=== PATIENT | female | born 1960 | race Caucasian/White ===

== ENCOUNTER → 2024-02-05 | Outpatient (CLI) | payer MEDICARE | END | disposition home or self-care (01) | LOC: LABPRL 14:33 | PROVIDERS: ATTEND Registered Nurse Gerontology | DX: E78.5 Hyperlipidemia, unspecified (principal); E07.9 Disorder of thyroid, unspecified; R73.9 Hyperglycemia, unspecified | CPT/HCPCS: 80053; 80061; 83036; 84439; 84443; 85025 ==

== ENCOUNTER → 2024-05-29 | Outpatient (CLI) | payer MEDICARE ==
[2024-05-29 14:47] VITALS: BP 173/94; PULSE 75; RESP 16; TEMP 98.9
--- NOTE | 2024-05-29 15:25 | P.GSCN ---
History of Present Illness Consult date: 05/29/24 Reason for Consult: left breast tripple (-) invasive ductal cancer Requesting physician: Perla eRn History of present illness: Elizabeth is a 64 year old female seen in consultation for Dr. Ren and Dr. Casarez regarding a left breast IDC, tripple (-), T2N0M0. She had a bilateral mammogram on 03-12-24 which showed post treatment changes in the right breast (cancer) and a comglomeration of masses 36 by 29 by 30mm. in the left breast. Ultrasound on 03-31-24 confirmed the masses in the left breast and she had an ultrasound guided core biopsy on 04-22-24, showing IDC Grade 3. She states she noted a lump in her left breast about 8 months ago. Her last mammogram prior to this was several years ago. The area has not changed in size, it is not painful. No nipple discharge, no skin changes, no recent trauma of the breast, and no surgery of the left breast. She had a stereo biopsy of the left breast in the remote past which was benign. She had a right breast cancer in 2001 it was treated with surgery, chemotherapy (scheduled for 6 only made it through 5 had it after the surgery), and radiation therapy. This was done a [facility] at the time. T2.9 cm N0 (31 nodes)[id number]- She did not have genetic testing done, but sister and two nieces did and all had surgery not know what gene they carried PET scan scheduled for next week. She was seen by radiation oncology DR. Ren on 05-11-24 and his note is reviewed. caffiene: 1 cup coffee/day nicotine: none, stopped in the 's; 1/2 PPD for 4 years chocolate: daily BCP: used for about 15 years hormones: on lupreon prior to hysterectomy to shrink fibroids Hormonal History: menarche: 13 G0 menopause: surgical hysterectomy done for fibroids no cancer at 33, left ovaries Family History: paternal grandmother: vaginal cancer maternal grandmother: breast cancer father: renal cell cancer form this Surgical History: right breast and 30 nodes removed hysterectomy Medical History: anxiety and was on wellbutrin and stopped Social History: nicotine: none alcohol: several beers/week 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; since 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 in high school only 1 or 2 a day Review of Systems - Constitutional Denies fever, Denies weight loss - EENT Eyes: denies blurred vision Ears: right: tinnitus (from chemo) Ears, nose, mouth and throat: Denies dysphagia - Breasts bilateral: as per HPI - Cardiovascular Denies chest pain, Denies shortness of breath - Respiratory Denies cough, Denies 7 - Gastrointestinal Reports as per HPI - Genitourinary Genitourinary: Denies dysuria, Denies hematuria Menstruation: Reports post hysterectomy - Musculoskeletal Musculoskeleta Comment(s): fell frequently this year, vertigo - Integumentary Denies rash, Denies unusual bruising - Neurological Neurologic Comment(s): vertigo Denies headaches, Denies syncope - Psychiatric Reports as per HPI, Reports anxiety - Endocrine Reports as per HPI - Hematologic/Lymphatic Denies easy bleeding, Denies easy bruising - Allergic/Immunologic Reports as per HPI, Reports seasonal allergies Medications and Allergies Home Medications Medication Instructions Recorded Confirmed Type No Known Home Medications 05/29/24 05/29/24 History Allergies Allergy/AdvReac Type Severity Reaction Status Date / Time No Known Allergies Allergy Unverified 05/29/24 14:45 Surgical - Exam - General no distress - Eyes normal ocular movement - Neck trachea midline - Respiratory normal respiratory effort, clear to auscultation - Cardiovascular Rhythm: regular Heart Sounds: normal: S1, S2 - Abdomen Abdomen: soft, non tender, no guarding, no rigid, no rebound - Integumentary normal turgor - Neurologic no disoriented, no combative - Musculoskeletal normal gait, normal posture - Psychiatric oriented to time, oriented to person, oriented to place, speech is normal, memory intact Breast Exam: BRA: ? size Inspection: Right breast is smaller than left breast, right breast grade 1/2 ptosis, left breast 2/3 ptosis, there is fullness in the 12 o'clock position approximately 6 cm from the nipple noted on visual inspection Palpation: Right breast: Multi positional exam postsurgical and radiation changes no dominant masses or nodules of concern Right axilla: No adenopathy of concern Left breast: Multi positional exam approximately 6 x 5 cm mass in the upper breast approximately 6 cm from the nipple areolar complex this is freely mobile no other dominant masses or nodules of concern Left axilla: No adenopathy of concern Results PET scan is going to be done next week Mammogram and ultrasound personally reviewed and discussed with Dr. 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 Ren, DR. Casarez
== END ==
LOC: WWCWWP 13:45
PROVIDERS: ATTEND Surgery
DX: D05.12 Intraductal carcinoma in situ of left breast (principal); Z85.3 Personal history of malignant neoplasm of breast; Z80.3 Family history of malignant neoplasm of breast; Z17.22 Progesterone receptor negative status; Z17.1 Estrogen receptor negative status [ER-]

== ENCOUNTER → 2024-06-01 | Outpatient (CLI) | payer MEDICARE ==
--- NOTE | 2024-06-10 10:18 | BMR ---
EXAM DATE: 06/01/2024 EXAM DESCRIPTION: MRI-Breast Bilat (W/WO Contrast) INDICATION: History of right breast cancer status post breast conserving therapy in 2001. Newly diagnosed invasive ductal carcinoma in the left breast. COMPARISON: Comparison was made to prior relevant imaging available in PACS TECHNIQUE: Multiplanar multisequence breast MRI was performed prior to and after administration of 9 mL of Gadavist intravenously. Post processing was performed utilizing a [employer] workstation. The technical portion of this study was performed at [facility] with radiological interpretation by [facility] radiology. The exam is slightly limited due to motion artifact. FINDINGS: There is mild right and moderate left background parenchymal enhancement in breasts that are composed of scattered fibroglandular tissue. This asymmetry in background parenchymal enhancement may be related to history of prior radiation in the right breast. RIGHT BREAST: Postsurgical changes are present in the breast. Review of the dynamic contrast enhanced series shows no rapidly enhancing masses, suspicious enhancement patterns or other abnormalities. The T2 weighted series show no abnormality. LEFT BREAST: Review of the dynamic contrast enhanced series shows lobulated enhancing mass with associated signal void from biopsy clip at 12 o'clock position mid depth of the breast (series 503, image 594 and series 601, image 74). It measures 4.0 x 2.9 x 4.1 cm (AP x trans x cc dimension) and is consistent with biopsy-proven malignancy. Otherwise, no rapidly enhancing masses, suspicious enhancement pattern or other abnormalities in the left breast. The T2 weighted series show no abnormality. LYMPH NODES: No axillary or internal mammary lymphadenopathy. Small enhancing focus along the left internal mammary chain likely represents torturous vessel rather than slightly prominent internal mammary lymph node (series 504, image 427 and series 601 image 101). Incidental findings: A few circumscribed T2 hyperintense lesions in the partially visualized liver, presumed hepatic cysts. IMPRESSION: 1. Study limited by motion artifact. 2. Right breast: No MR evidence of malignancy. Postsurgical changes in the upper outer quadrant. 3. Left breast: A 4.0 x 2.9 x 4.1 cm enhancing mass at 12 o'clock position mid depth of the breast compatible with biopsy-proven malignancy. Otherwise, no definitive suspicious enhancing masses or other abnormalities in the left breast. 4. No axillary or internal mammary lymphadenopathy. Small enhancing focus along the left internal mammary chain likely represent torturous vessel rather than prominent internal mammary lymph node. This may be further evaluation with CT chest or reassessed on subsequent follow-up. RECOMMENDATION: Given malignant results in the left breast, recommend surgical and oncological management. OVERALL ASSESSMENT- BI-RADS 6, biopsy-proven malignant MTDD
== END | disposition home or self-care (01) ==
LOC: RADMRIMAIN 12:35
PROVIDERS: ATTEND Surgery
DX: C50.812 Malignant neoplasm of overlapping sites of left female breast (principal); Z98.890 Other specified postprocedural states; Z85.3 Personal history of malignant neoplasm of breast
CPT/HCPCS: C8908; A9585; 77049

== ENCOUNTER → 2024-07-08 | Outpatient (CLI) | payer MEDICARE ==
--- NOTE | 2024-07-08 14:36 | US ---
EXAMINATION TYPE: US pelvis complete transvag DATE OF EXAM: 07/08/2024 COMPARISON: NONE CLINICAL INDICATION: Female, 64 years old with history of N94.89 OTH COND ASSOC W FEMGENI ORGAN C50.4 19; Partial hysterectomy 1992. Abnormal PET TECHNIQUE: Transvaginal (TV) and Transabdominal (TA) . Transabdominal grayscale sonographic images of the pelvis were acquired. Transvaginal sonographic im ages were medically necessary to better assess the following anatomy: ovaries Doppler imaging: Not performed. FINDINGS: Date of LMP: unknown EXAM MEASUREMENTS: Uterus: Surgically absent Endometrial Stripe: Surgically absent Right Ovary: 3.4 x 4.0 x 5.7cm Left Ovary: unable to visualize 1. Uterus: Surgically absent 2. Endometrium: Surgically absent 3. Right Ovary/right adnexa: complex hypoechoic lesion right adnexa = 3.4 x 4.0 x 5.7cm 4. Left Ovary: Obscured by overlying bowel gas 5. Left Adnexa: appears wnl IMPRESSION: Solid right ovarian mass which was FDG avid on PET on 05/27/2024. Findings concerning for malignancy g iven increased uptake on pet/CT. [facility], , 07/08/2024 2:33 PM
== END | disposition home or self-care (01) ==
LOC: RADUSWWP 13:18
PROVIDERS: ATTEND Internal Medicine
DX: N83.291 Other ovarian cyst, right side (principal); N94.89 Other specified conditions associated with female genital organs and menstrual cycle; C50.419 Malignant neoplasm of upper-outer quadrant of unspecified female breast
CPT/HCPCS: 76830; 76856

== ENCOUNTER 2025-01-22 16:26 | Emergency (ER) | payer MEDICARE ==
[2025-01-22 16:35] VITALS: RESP 18; TEMP 98.1
--- NOTE | 2025-01-22 17:16 | ED ---
General Adult HPI - General Chief complaint: Upper Respiratory Infection Stated complaint: Chest Congestiion/STEVIE Time Seen by Provider: 01/22/25 16:35 Source: patient Mode of arrival: ambulatory Limitations: no limitations - History of Present Illness Initial comments: 64-year-old female who presents to the emergency department reporting chest congestion. Patient has a history of cancer and recently finished chemo and radiation 2 month ago. Patient reports that she has had a nonproductive cough with shortness of breath. Has exertional dyspnea. Today she was trying to cut her grass when she could not catch her breath. She has been taking Mucinex but this is not improving her symptoms. She denies history of asthma. No COPD. No fevers. Denies chest pain. No history of cardiac disease. No calf pain or swelling. No history of DVT or PE. No other alleviating, precipitating or modifying factors - Related Data Home Medications Medication Instructions Recorded Confirmed Ondansetron [Zofran] 4 mg PO Q12HR PRN 09/25/24 11/27/24 Stool Softener 1 tab PO DIRECTED PRN 09/25/24 11/27/24 Previous Rx's Medication Instructions Recorded Albuterol Inhaler [Ventolin Hfa 2 puff INHALATION QID #8 gm 01/22/25 Inhaler] Doxycycline Hyclate 100 mg PO BID 5 Days #10 tab 01/22/25 predniSONE [Deltasone] 20 mg PO BID #10 tab 01/22/25 Allergies Allergy/AdvReac Type Severity Reaction Status Date / Time No Known Allergies Allergy Verified 01/22/25 16:35 Review of Systems ROS Statement: Those systems with pertinent positive or pertinent negative responses have been documented in the HPI. ROS Other: All systems not noted in ROS Statement are negative. Past Medical History Past Medical History: Cancer Additional Past Medical History / Comment(s): ovarian and bilateral breast cancer, History of Any Multi-Drug Resistant Organisms: None Reported Past Surgical History: Hysterectomy Additional Past Surgical History / Comment(s): juan daniel zuniga Past Psychological History: No Psychological Hx Reported Smoking Status: Former smoker Past Alcohol Use History: Occasional Past Drug Use History: Marijuana General Exam Limitations: no limitations General appearance: alert, in no apparent distress Head exam: Present: atraumatic, normocephalic, normal inspection Eye exam: Present: normal appearance, PERRL, EOMI. Absent: scleral icterus, conjunctival injection, periorbital swelling ENT exam: Present: normal exam, mucous membranes moist Neck exam: Present: normal inspection. Absent: tenderness, meningismus, lymphadenopathy Respiratory exam: Present: wheezes. Absent: respiratory distress, rales, rhonchi, stridor Cardiovascular Exam: Present: regular rate, normal rhythm, normal heart sounds. Absent: systolic murmur, diastolic murmur, rubs, gallop, clicks GI/Abdominal exam: Present: soft, normal bowel sounds. Absent: distended, tenderness, guarding, rebound, rigid Extremities exam: Present: normal inspection, full ROM, normal capillary refill. Absent: tenderness, pedal edema, joint swelling, calf tenderness Back exam: Present: normal inspection Neurological exam: Present: alert, oriented X3, CN II-XII intact Psychiatric exam: Present: normal affect, normal mood Skin exam: Present: warm, dry, intact, normal color. Absent: rash Course Vital Signs 01/22/25 01/22/25 01/22/25 16:31 18:11 18:18 Temperature 98.1 F Pulse Rate 120 H 96 99 Respiratory 18 18 18 Rate Blood Pressure 165/75 O2 Sat by Pulse 96 Oximetry 01/22/25 19:45 Temperature Pulse Rate 98 Respiratory 18 Rate Blood Pressure 146/94 O2 Sat by Pulse 98 Oximetry Medical Decision Making - Medical Decision Making Was pt. sent in by a medical professional or institution ([facility]illa, MRB ENGINEER, urgent care, hospital, or fpc...) When possible be specific @ -No Did you speak to anyone other than the patient for history (EMS, parent, family, police, friend...)? What history was obtained from this source @ -No Did you review nursing and triage notes (agree or disagree)? Why? @ -I reviewed and agree with nursing and triage notes Were old charts reviewed (outside hosp., previous admission, EMS record, old EKG, old radiological studies, urgent care reports/EKG's, fpc records)? Report findings @ -No old charts were reviewed Differential Diagnosis (chest pain, altered mental status, abdominal pain women, abdominal pain men, vaginal bleeding, weakness, fever, dyspnea, syncope, headache, dizziness, GI bleed, back pain, seizure, CVA, palpatations, mental health, musculoskeletal)? @ -Differential Dyspnea: Coronary syndrome, arrhythmia, tamponade, asthma, COPD, pulmonary embolism, pneumonia, pneumothorax, pulmonary effusion, anaphylaxis, diabetic ketoacidosis, flailed chest, pulmonary contusion, diaphragmatic rupture, anemia, neuromuscular, this is not meant to be an all-inclusive list. EKG interpreted by me (3pts min.). @ -Yes and demonstrates sinus tachycardia with a rate of 104. LA interval 156. QRS 82. QTc of 394. No acute ST segment ovation or depression X-rays interpreted by me (1pt min.). @ -Yes which demonstrates no acute process CT interpreted by me (1pt min.). @ -None done U/S interpreted by me (1pt. min.). @ -None done What testing was considered but not performed or refused? (CT, X-rays, U/S, labs)? Why? @ -None What meds were considered but not given or refused? Why? @ -None Did you discuss the management of the patient with other professionals (professionals i.e. , PA, MRB ENGINEER, lab, RT, psych nurse, social media content manager, electrician elevator maintenance, teacher, contracts officer, case sealer)? Give summary @ -No Was smoking cessation discussed for >3mins.? @ -No Was critical care preformed (if so, how long)? @ -No Were there social determinants of health that impacted care today? How? (Homeles sness, low income, unemployed, alcoholism, drug addiction, transportation, low edu. Level, literacy, decrease access to med. care, retirement, rehab)? @ -No Was there de-escalation of care discussed even if they declined (Discuss DNR or withdrawal of care, Hospice)? DNR status @ -No What co-morbidities impacted this encounter? (DM, HTN, Smoking, COPD, CAD, Cancer, CVA, ARF, Chemo, Hep., AIDS, mental health diagnosis, sleep apnea, morbid obesity)? @ -Cancer Was patient admitted / discharged? Hospital course, mention meds given and route, prescriptions, significant lab abnormalities, going to OR and other pertinent info. @ -Upon arrival patient seen and evaluated in bed 20. Thorough history and physical exam was performed. IV access was established. Laboratory studies are conducted. Chest x-ray was performed. Patient was given a breathing treatments, dose of Solu-Medrol and doxycycline. Patient will be discharged home on prednisone and with an albuterol inhaler. I did include doxycycline due to the patient's immunocompromise status. Patient will be instructed to follow-up with her primary care doctor in 2 to 4 days for reevaluation. Return for any new or worsening symptoms. Patient agreeable to plan was discharged in stable condition Undiagnosed new problem with uncertain prognosis? @ -No Drug Therapy requiring intensive monitoring for toxicity (Heparin, Nitro, Insulin, Cardizem)? @ -No Were any procedures done? @ -No Diagnosis/symptom? @ -Acute respiratory insufficiency, acute reactive airway, tracheobronchitis Acute, or Chronic, or Acute on Chronic? @ -Acute Uncomplicated (without systemic symptoms) or Complicated (systemic symptoms)? @ -Complicated Side effects of treatment? @ -No Exacerbation, Progression, or Severe Exacerbation? @ -No Poses a threat to life or bodily function? How? (Chest pain, [place], [place], pneumonia, PE, COPD, DKA, ARF, appy, cholecystitis, CVA, Diverticulitis, Homicidal, Suicidal, threat to staff... and all critical care pts) @ -No - Lab Data Result diagrams: 01/22/25 17:30 01/22/25 17:47 Lab Results 01/22/25 01/22/25 01/22/25 Range/Units 17:30 17:42 17:47 WBC 7.67 (4.50-10.00) 10*3/uL RBC 4.14 (4.10-5.20) 10*6/uL Hgb 13.3 (12.0-15.0) g/dL Hct 38.5 (37.2-46.3) % MCV 93.0 (80.0-97.0) fL MCH 32.1 H (27.0-32.0) pg MCHC 34.5 (32.0-37.0) g/dL Plt Count 216 (140-440) 10*3/uL MPV 9.8 (9.5-12.2) fL Immature Gran % (Auto) 0.3 % Neutrophils % 70.3 % Lymphocytes % 19.7 % Monocytes % 6.5 % Eosinophils % 2.3 % Basophils % 0.9 % Immature Gran # 0.02 (0.00-0.04) 10*3/uL Neutrophils # 5.39 (1.80-7.70) 10*3/uL Lymphocytes # 1.51 (0.90-5.00) 10*3/uL Monocytes # 0.50 (0.20-1.00) 10*3/uL Eosinophils # 0.18 (0.04-0.35) 10*3/uL Basophils # 0.07 (0.00-0.10) 10*3/uL PT (10.0-12.5) sec INR (<1.2) APTT (22.0-30.0) sec D-Dimer (<0.60) mg/L FEU Sodium (137-145) mmol/L Potassium (3.5-5.1) mmol/L Chloride (98-107) mmol/L Carbon Dioxide (22-30) mmol/L Anion Gap mmol/L BUN (7-17) mg/dL Creatinine (0.52-1.04) mg/dL Est GFR (CKD-EPI)AfAm (>60 ml/min/1.73 sqM) Est GFR (CKD-EPI)NonAf (>60 ml/min/1.73 sqM) Glucose (74-99) mg/dL Plasma Lactic Acid Zana 1.3 (0.7-2.0) mmol/L Calcium (8.4-10.2) mg/dL Total Bilirubin (0.2-1.3) mg/dL AST (14-36) U/L ALT (4-34) U/L Alkaline Phosphatase (38-126) U/L Troponin I (0.000-0.034) ng/mL NT-Pro-B Natriuret Pep pg/mL Total Protein (6.3-8.2) g/dL Albumin (3.5-5.0) g/dL Influenza Type A (PCR) Not Detected (Not Detectd) Influenza Type B (PCR) Not Detected (Not Detectd) RSV (PCR) Not Detected (Not Detectd) SARS-CoV-2 (PCR) Not Detected (Not Detectd) 01/22/25 01/22/25 01/22/25 Range/Units 17:47 17:47 17:47 WBC (4.50-10.00) 10*3/uL RBC (4.10-5.20) 10*6/uL Hgb (12.0-15.0) g/dL Hct (37.2-46.3) % MCV (80.0-97.0) fL MCH (27.0-32.0) pg MCHC (32.0-37.0) g/dL Plt Count (140-440) 10*3/uL MPV (9.5-12.2) fL Immature Gran % (Auto) % Neutrophils % % Lymphocytes % % Monocytes % % Eosinophils % % Basophils % % Immature Gran # (0.00-0.04) 10*3/uL Neutrophils # (1.80-7.70) 10*3/uL Lymphocytes # (0.90-5.00) 10*3/uL Monocytes # (0.20-1.00) 10*3/uL Eosinophils # (0.04-0.35) 10*3/uL Basophils # (0.00-0.10) 10*3/uL PT 10.9 (10.0-12.5) sec INR 1.0 (<1.2) APTT 22.0 (22.0-30.0) sec D-Dimer 0.45 (<0.60) mg/L FEU Sodium 142 (137-145) mmol/L Potassium 4.1 (3.5-5.1) mmol/L Chloride 106 (98-107) mmol/L Carbon Dioxide 25 (22-30) mmol/L Anion Gap 11 mmol/L BUN 22 H (7-17) mg/dL Creatinine 0.54 (0.52-1.04) mg/dL Est GFR (CKD-EPI)AfAm >90 (>60 ml/min/1.73 sqM) Est GFR (CKD-EPI)NonAf >90 (>60 ml/min/1.73 sqM) Glucose 111 H (74-99) mg/dL Plasma Lactic Acid Zana (0.7-2.0) mmol/L Calcium 9.6 (8.4-10.2) mg/dL Total Bilirubin 0.5 (0.2-1.3) mg/dL AST 25 (14-36) U/L ALT 14 (4-34) U/L Alkaline Phosphatase 59 (38-126) U/L Troponin I <0.012 (0.000-0.034) ng/mL NT-Pro-B Natriuret Pep 184 pg/mL Total Protein 7.9 (6.3-8.2) g/dL Albumin 4.9 (3.5-5.0) g/dL Influenza Type A (PCR) (Not Detectd) Influenza Type B (PCR) (Not Detectd) RSV (PCR) (Not Detectd) SARS-CoV-2 (PCR) (Not Detectd) Disposition Clinical Impression: Acute respiratory insufficiency, Tracheobronchitis Disposition: HOME SELF-CARE Condition: Stable Instructions (If sedation given, give patient instructions): Acute Bronchitis (ED) Additional Instructions: Take the antibiotics and steroids as they are instructed. Use the inhaler every 4 hours. Follow-up with your doctor and return for any new or worsening symptoms Prescriptions: predniSONE [Deltasone] 20 mg PO BID #10 tab Doxycycline Hyclate 100 mg PO BID 5 Days #10 tab Albuterol Inhaler [Ventolin Hfa Inhaler] 2 puff INHALATION QID #8 gm Is patient prescribed a controlled substance at d/c from ED?: No Referrals: Meryl Casarez MD [Primary Care Provider] - 1-2 days Time of Disposition: 19:33
[2025-01-22 17:36] LABS: Basophils # (A) 0.07 10*3/uL (0.00-0.10); Basophils % (A) 0.9 %; Eosinophils # (A) 0.18 10*3/uL (0.04-0.35); Eosinophils % (A) 2.3 %; HCT 38.5 % (37.2-46.3); HGB 13.3 g/dL (12.0-15.0); Lymphocytes # (A) 1.51 10*3/uL (0.90-5.00); Lymphocytes % (A) 19.7 %; MCH 32.1 pg (27.0-32.0); MCHC 34.5 g/dL (32.0-37.0); MCV 93.0 fL (80.0-97.0); Monocytes # (A) 0.50 10*3/uL (0.20-1.00); Monocytes % (A) 6.5 %; Neutrophils # (A) 5.39 10*3/uL (1.80-7.70); Neutrophils % (A) 70.3 %; Platelet Count 216 10*3/uL (140-440); RBC 4.14 10*6/uL (4.10-5.20); RDW 12.7 % (11.5-14.5); WBC 7.67 10*3/uL (4.50-10.00)
--- NOTE | 2025-01-22 18:00 | XR ---
EXAMINATION TYPE: XR chest 2V DATE OF EXAM: 01/22/2025 5:54 PM COMPARISON: None TECHNIQUE: XR chest 2V Frontal and lateral views of the chest. CLINICAL INDICATION:Female, 64 years old with history of difficulty breathing; FINDINGS: Lungs/Pleura: There is no evidence of pleural effusion, focal consolidation, or pneumothorax. Pulmonary vascularity: Unremarkable. Heart/mediastinum: Cardiomediastinal silhouette is unremarkable. Musculoskeletal: Multiple level degenerative disc disease changes seen throughout the spine. IMPRESSION: No acute cardiopulmonary disease/process. [facility], , 01/22/2025 5:58 PM
[2025-01-22] MEDS: IPRATROPIUM-ALBUTEROL 3 ML NEB INHALATION STA (18:11)
[2025-01-22 18:24] LABS: INR 1.0 (<1.2); Partial Thromboplastin Time 22.0 sec (22.0-30.0); Prothrombin Time 10.9 sec (10.0-12.5)
[2025-01-22 18:25] LABS: ALT 14 U/L (4-34); AST 25 U/L (14-36); African American GFR (CKD) >90 (>60 ml/min/1.73 sqM); Albumin 4.9 g/dL (3.5-5.0); Alkaline Phosphatase 59 U/L (38-126); Anion Gap 11 mmol/L; Blood Urea Nitrogen 22 mg/dL (7-17); Calcium 9.6 mg/dL (8.4-10.2); Carbon Dioxide 25 mmol/L (22-30); Chloride 106 mmol/L (98-107); Glucose 111 mg/dL (74-99); Non-African American GFR(CKD) >90 (>60 ml/min/1.73 sqM); Potassium 4.1 mmol/L (3.5-5.1); Sodium 142 mmol/L (137-145); Total Protein 7.9 g/dL (6.3-8.2)
[2025-01-22 18:34] LABS: NT-Pro-B-Type Natriuretic Pept 184 pg/mL
[2025-01-22 18:50] LABS: RSV Not Detected (Not Detectd)
[2025-01-22] MEDS: methylPREDNISolone SOD SUCCI 125 MG/2 ML VIAL IV STA (18:57)
[2025-01-22] MEDS: DOXYCYCLINE 100 MG TABLET PO ONE (19:41)
[2025-01-22 19:47] VITALS: PULSE 98
[2025-01-22 19:54] VITALS: BP 146/94
== END 2025-01-22 19:57 | disposition home or self-care (01) ==
LOC: EC 16:26
DX: J40 Bronchitis, not specified as acute or chronic (principal); R06.89 Other abnormalities of breathing; Z87.891 Personal history of nicotine dependence; Z85.9 Personal history of malignant neoplasm, unspecified
CPT/HCPCS: 36415; 94640; 93005; 85379; 83880; 80053; 83605; 84484; 85025; 85610; 85730; 87636; 71046; 99285; 96374; J2919